=== PATIENT | female | born 1945 | race Caucasian/White ===

== ENCOUNTER 2018-03-08 09:32 | Emergency (ER) | payer MEDICARE ==
[~2018-03-08] VITALS: Ht 172.7 cm; Wt 73.9 kg
[2018-03-08 09:38] VITALS: BP 151/103
[2018-03-08] MEDS ORDERED: HYDROmorphone PF 1 MG/ML DISP.SYRIN IV ONE (10:00)
[2018-03-08] MEDS ORDERED: IV NORMAL SALINE 500ML 500 ML IV ONE (10:00)
[2018-03-08] MEDS ORDERED: ONDANSETRON PF 4 MG/2 ML VIAL. IV ONE (10:00)
[2018-03-08] MEDS ORDERED: ORPHENADRINE CITRATE 60 MG/2 ML VIAL. IV ONE (10:00)
--- NOTE | 2018-03-08 10:05 | PHYS DOC ---
Past History Past Medical History: High Cholesterol, Hypertension Alcohol Use: None Drug Use: None Adult General Chief Complaint Chief Complaint: Neck Pain HPI HPI 72-year-old female presents with sudden onset of right-sided neck pain. The patient woke up about 3 AM with severe pain in the right side of her neck. The pain is a deep cramping. She was feeling fine prior to this. She denies any trauma or inciting event. She was not doing anything extra strenuous the day before. She took one Aleve but it did not help with the pain at all. She has tried heating pad also and it did not help. She has no other symptoms of illness. She denies fever or chills. She's never had neck pain before. No neck trauma or neck surgical history. She has no other complaints. Review of Systems Review of Systems Constitutional: Denies fever or chills [] Eyes: Denies change in visual acuity, redness, or eye pain [] HENT: Denies nasal congestion or sore throat [] Respiratory: Denies cough or shortness of breath [] Cardiovascular: No additional information not addressed in HPI [] GI: Denies abdominal pain, nausea, vomiting, bloody stools or diarrhea [] : Denies dysuria or hematuria [] Musculoskeletal: Neck pain[] Integument: Denies rash or skin lesions [] Neurologic: Denies headache, focal weakness or sensory changes [] Endocrine: Denies polyuria or polydipsia [] All other systems were reviewed and found to be within normal limits, except as documented in this note. Current Medications Current Medications Current Medications Medications (Trade) Dose Ordered Sig/Lucila Start Time Stop Time Status Last Admin Dose Admin Hydromorphone HCl (Dilaudid) 0.5 mg 1X ONCE 03/08/18 10:00 03/08/18 10:01 Ondansetron HCl (Zofran) 4 mg 1X ONCE 03/08/18 10:00 03/08/18 10:01 Orphenadrine Citrate (Norflex) 60 mg 1X ONCE 03/08/18 10:00 03/08/18 10:01 Sodium Chloride 500 ml @ 0 mls/hr 1X ONCE 03/08/18 10:00 03/08/18 10:01 Allergies Allergies Allergies Uncoded Allergies Type Severity Reaction Last Updated Verified unknown (Patient can't remember) Allergy Intermediate 03/08/18 Physical Exam Physical Exam Constitutional: Well developed, well nourished, no acute distress, non-toxic appearance. [] HENT: Normocephalic, atraumatic, bilateral external ears normal, oropharynx moist, no oral exudates, nose normal. [] Eyes: PERRLA, EOMI, conjunctiva normal, no discharge. [] Neck: Limited range of motion with right rotation due to pain, no stiffness, pain with palpation of right paraspinal muscles, muscle spasms of the same.[] Cardiovascular:Heart rate regular rhythm, no murmur [] Lungs & Thorax: Bilateral breath sounds clear to auscultation [] Abdomen: Bowel sounds normal, soft, no tenderness, no masses, no pulsatile masses. [] Skin: Warm, dry, no erythema, no rash. [] Back: No tenderness, no CVA tenderness. [] Extremities: No tenderness, no cyanosis, no clubbing, ROM intact, no edema. [] Neurologic: Alert and oriented X 3, normal motor function, normal sensory function, no focal deficits noted. [] Psychologic: Affect normal, judgement normal, mood normal. [] Current Patient Data Vital Signs Vital Signs Date Time Temp Pulse Resp B/P (MAP) Pulse Ox O2 Delivery O2 Flow Rate FiO2 03/08/18 09:47 Room Air 03/08/18 09:38 97.8 95 20 97 EKG EKG [] Radiology/Procedures Radiology/Procedures [] Impressions: Cervical spine, 3 views, 03/08/2018: HISTORY: Right-sided neck pain No fracture or dislocation is identified. There is mild disc space narrowing at C6-7 with mild marginal spurring. There are mild to moderate degenerative changes involving scattered facet joints bilaterally. There is minimal calcific plaquing at the carotid bifurcations. IMPRESSION: 1. Mild to moderate scattered degenerative changes. 2. No acute bony abnormality is detected. Electronically signed by: Farhat Penn MD (03/08/2018 10:29 AM) [facility] DICTATED AND SIGNED BY: FARHAT PENN MD DATE: 03/08/18 1027 CC: OLIVIA BARBER DO; JUDIT HILLS MD ~ Course & Med Decision Making Course & Med Decision Making Pertinent Labs and Imaging studies reviewed. (See chart for details) The patient's labs are unremarkable. Her cervical spine x-rays do not show any acute findings. Her degenerative change findings are mild. I suspect the patient just slept and on position and she had reflex spasm in her cervical paraspinal muscles. I treated her with Norflex. She already took Aleve at home. A small dose of Dilaudid was also given 4 pain control. The patient is feeling a bit better at this time. The sharpness of the pain is subsided. I will discharge her with instructions to use naproxen twice a day for the next few days as well as Flexeril. I will prescribe Flexeril 5 mg. Although the patient is over the age of 65, I do not believe that she is at high risk for consultation with Flexeril. She will also only be taking it for a couple of days. He'll be sure to take her first dose while she is home in case she has any side effects. If her vision worsens or any new symptoms develop, she will she is stable for discharge at this time. [] Dragon Disclaimer Dragon Disclaimer This electronic medical record was generated, in whole or in part, using a voice recognition dictation system. Departure Departure: Referrals: JUDIT HILLS MD (PCP) OLIVIA BARBER DO Mar 08, 2018 10:05
[2018-03-08 10:06] LABS: BASO # 0.1 x10^3/uL (0.0-0.2); BASO % 1 % (0-3); EOS # 0.2 x10^3/uL (0.0-0.7); EOS % 3 % (0-3); HEMATOCRIT 41.4 % (36.0-47.0); HEMOGLOBIN 13.9 g/dL (12.0-15.5); LYMPH # 3.1 x10^3/uL (1.0-4.8); LYMPH % 48 % (24-48); MEAN CORPUSCULAR HEMOGLOBIN 29 pg (25-35); MEAN CORPUSCULAR HGB CONC 33 g/dL (31-37); MEAN CORPUSCULAR VOLUME 87 fL (79-100); MONO # 0.5 x10^3/uL (0.0-1.1); MONO % 8 % (0-9); NEUT # 2.6 x10^3uL (1.8-7.7); NEUT % 40 % (31-73); PLATELET COUNT 295 x10^3/uL (140-400); RED BLOOD COUNT 4.77 x10^6/uL (3.50-5.40); RED CELL DISTRIBUTION WIDTH 14.4 % (11.5-14.5); WHITE BLOOD COUNT 6.5 x10^3/uL (4.0-11.0)
--- NOTE | 2018-03-08 10:32 | RAD ---
Cervical spine, 3 views, 03/08/2018: HISTORY: Right-sided neck pain No fracture or dislocation is identified. There is mild disc space narrowing at C6-7 with mild marginal spurring. There are mild to moderate degenerative changes involving scattered facet joints bilaterally. There is minimal calcific plaquing at the carotid bifurcations. IMPRESSION: 1. Mild to moderate scattered degenerative changes. 2. No acute bony abnormality is detected. Electronically signed by: Farhat Penn MD (03/08/2018 10:29 AM) [facility]
[2018-03-08 11:01] LABS: ALBUMIN 3.9 g/dL (3.4-5.0); ALBUMIN/GLOBULIN RATIO 1.1 (1.0-1.7); CALCIUM 8.8 mg/dL (8.5-10.1); CREATININE 0.8 mg/dL (0.6-1.0); GFR 70.5; POTASSIUM 3.7 mmol/L (3.5-5.1); TOTAL BILIRUBIN 0.5 mg/dL (0.2-1.0); TOTAL PROTEIN 7.3 g/dL (6.4-8.2)
[2018-03-08] MEDS ORDERED: CYCL5TAB PO (11:23)
== END 2018-03-08 11:42 | disposition home or self-care (01) ==
LOC: ER 09:32
DX: M54.2 Cervicalgia (principal); G54.2 Cervical root disorders, not elsewhere classified; E78.00 Pure hypercholesterolemia, unspecified; I10 Essential (primary) hypertension
CPT/HCPCS: 36415; 72040; 80053; 85025; 96374; 96375; 99285; J1170; J2360; J2405; J7040

== ENCOUNTER → 2019-04-08 | Outpatient (CLI) | payer MEDICARE ==
[~2019-04-08] MED LIST: CYCL5TAB PO
--- NOTE | 2019-04-08 18:03 | RAD ---
RIBS RIGHT AND PA CHEST History: Rib pain Comparison: None. Findings: Single view of the chest and 3 additional views of the right ribs are submitted. Pericardial cardiac silhouette is upper limits of normal. There is mild thoracic dextroscoliosis. There is mild linear fibrotic change or atelectasis left lateral lung base. There is no pneumothorax or significant dependent pleural fluid. No displaced right rib fracture is identified by radiographs. Impression: 1. No displaced right rib fracture is identified by radiographs. Electronically signed by: Baljit Amado MD (04/08/2019 6:00 PM) [id number]
== END | disposition home or self-care (01) ==
LOC: RAD 12:17
PROVIDERS: ATTEND Physician Assistant Medical
DX: S20.211A Contusion of right front wall of thorax, initial encounter (principal); X58.XXXA Exposure to other specified factors, initial encounter; Y93.89 Activity, other specified; Y92.89 Other specified places as the place of occurrence of the external cause; Y99.8 Other external cause status
CPT/HCPCS: 71101

== ENCOUNTER 2020-03-23 11:45 | Emergency (ER) | payer MEDICARE ==
[~2020-03-23] VITALS: Ht 172.7 cm; Wt 74.7 kg
[2020-03-23] MEDS ORDERED: diazePAM 5 MG TABLET. PO ONE (12:30)
[2020-03-23] MEDS ORDERED: DEXAMETHASONE SOD PHOS 10 MG/ML VIAL. IV ONE (12:30)
[2020-03-23] MEDS ORDERED: KETOROLAC 30 MG/ML VIAL. IVP ONE (12:30)
--- NOTE | 2020-03-23 12:59 | RAD ---
Examination: HIP RIGHT 2V WITH PELVIS, LUMBAR SPINE 2-3V History: pain / Comparison/Correlation: None Findings: Total 3 images of the lumbar spine were obtained. Frontal view of the pelvis, frontal view and right hip, and frog-leg lateral view right hip were obtained. The levo convexity of the lumbar spine is noted. Anterolisthesis of L4 in relation L5 by less than grade 1 extent is noted. Facet joint degenerative changes from L4 to S1 are present. Moderate to severe disc space narrowing from L4 through S1. Visualized heights are adequate. Constipation involving abdominal aorta noted. Hip joints are symmetric. Bony pelvis is intact. No fracture or bone destruction. Impression: Scoliosis of the lumbar spine and mild anterolisthesis of L4 over L5. Degenerative disc space narrowing from L4 through S1. No right hip fracture or bone destruction. No significant degenerative changes of the hip joints. Consider further imaging if occult process is a persistent concern. Electronically signed by: Watson Houston MD (03/23/2020 12:56 PM) [id number]
--- NOTE | 2020-03-23 13:42 | PHYS DOC ---
Past History Past Medical History: High Cholesterol, Hypertension Past Surgical History: No Surgical History Alcohol Use: None Drug Use: None Adult General Chief Complaint Chief Complaint: BACK PAIN OR INJURY HPI HPI Patient is a 74-year-old female who presents to the emergency room complaining of right back and hip pain that started last night. She states it radiates into her thigh and is sharp shooting pain. She states it makes it difficult for her to walk. Pain is worse with walking movement. She is tried a heating pad without relief. She had to crawl due to the bathroom this morning. She denies any bowel or bladder issues. She does not have any abdominal pain. She is not had any trauma. She denies any fever. Review of Systems Review of Systems General: Denies fever, chills, sweats, fatigue Eyes: Denies drainage, blurred vision, eye redness HENT: Denies rhinorrhea, sore throat, earache Respiratory: Denies cough, shortness of breath, wheezing Cardiac: Denies edema, palpitations, chest pain GI: Denies abdominal pain, Nausea, vomiting MSK: Denies neck pain. Reports back pain, hip pain Skin: Denies rash, jaundice Neuro: Denies headache, dizziness Psychiatric: Denies SI/HI Current Medications Current Medications Current Medications Medications (Trade) Dose Ordered Sig/Lucila Start Time Stop Time Status Last Admin Dose Admin Dexamethasone Sodium Phosphate (Decadron) 10 mg 1X ONCE 03/23/20 12:30 03/23/20 12:31 DC 03/23/20 12:45 10 MG Diazepam (Valium) 5 mg 1X ONCE 03/23/20 12:30 03/23/20 12:31 DC 03/23/20 12:43 5 MG Ketorolac Tromethamine (Toradol 30mg Vial) 30 mg 1X ONCE 03/23/20 12:30 03/23/20 12:31 DC 03/23/20 12:45 30 MG Allergies Allergies Allergies Coded Allergies Type Severity Reaction Last Updated Verified No Known Drug Allergies 03/23/20 No Physical Exam Physical Exam General: Awake, alert, NAD. Well Nourished, well hydrated. Cooperative HEENT: Atraumatic, EOMI, PERRL, airway patent, moist oral mucosa Neck: Supple, trachea midline Respiratory: CTA bilaterally, normal effort, no wheezing/crackles CV: RRR, no murmur, cap refill <2 GI: Soft, nondistended, nontender, no masses MSK: No obvious deformities, no lower spine tenderness, positive straight leg test on right Skin: Warm, dry, intact Neuro: A&O x3, speech NL, sensory and motor grossly intact, no focal deficits Psych: Normal affect, normal mood, not suicidal or homicidal Current Patient Data Vital Signs Vital Signs Date Time Temp Pulse Resp B/P (MAP) Pulse Ox O2 Delivery O2 Flow Rate FiO2 03/23/20 12:48 89 18 170/93 (118) 96 Room Air 03/23/20 11:56 98.5 EKG EKG [] Radiology/Procedures Radiology/Procedures [] Course & Med Decision Making Course & Med Decision Making Pertinent Labs and Imaging studies reviewed. (See chart for details) Patient is a 74-year-old female presents to the emergency room with symptoms that sound suggestive of sciatica. X-rays were ordered to rule in acute patho logic fracture given age. X-rays are normal at this time. She was given symptomatic care. She will be sent home with symptomatic care and steroids. Patient's test results and vitals while in the ED were fully reviewed and discussed with the patient. Patient is stable and at this time does not need admission to the hospital. We have discussed strict return precautions and the importance of following up with their Primary Care Physician. Patient stated understanding and was given an opportunity to ask any questions. Patient is in agreement with plan. Dragon Disclaimer Dragon Disclaimer This electronic medical record was generated, in whole or in part, using a voice recognition dictation system. Departure Departure: Impression: Primary Impression: Sciatica Disposition: HOME/RESIDENCE PRIOR TO ADM Condition: STABLE Referrals: CHANCE GERMAIN (PCP) Patient Instructions: Sciatica Scripts Oxycodone Hcl/Acetaminophen (PERCOCET 5-325 MG TABLET ) 1 Each Tablet 1 TAB PO PRN QID PRN for SEVERE PAIN 7-10 MDD 4 Tablet(s) for 5 Days, #10 TAB 0 Refills Prov: JAKE MCKOY MD 03/23/20 Methylprednisolone (MEDROL) 4 Mg Tab.ds.pk 1 PKG PO UD for inflammation, #1 PKG Prov: JAKE MCKOY MD 03/23/20 JAKE MCKOY MD Mar 23, 2020 13:42
[2020-03-23] MEDS ORDERED: oxyCODONE/APAP 10/325 1 TAB TABLET PO ONE (14:30)
[2020-03-23] MEDS ORDERED: ORPHENADRINE CITRATE 60 MG/2 ML VIAL. IM ONE (15:15)
[2020-03-23] MEDS ORDERED: OXYC1TAB15 PO (15:48)
[2020-03-23] MEDS ORDERED: METH4TAB2 PO (15:48)
[2020-03-23 16:06] VITALS: BP 134/74
== END 2020-03-23 16:06 | disposition home or self-care (01) ==
LOC: ER 11:45
DX: M54.31 Sciatica, right side (principal); M54.89 Other dorsalgia; M25.551 Pain in right hip; E78.00 Pure hypercholesterolemia, unspecified; I10 Essential (primary) hypertension
CPT/HCPCS: 72100; 73502; 96372; 96374; 96375; 99285; J1100; J1885; J2360